=== PATIENT | female | born 1985 | race Caucasian/White ===

== ENCOUNTER 2020-02-24 14:47 | Emergency (ER) | payer SELFPAY ==
[2020-02-24] MEDS ORDERED: ONDANSETRON HCL INJ/PF 4 MG/2 ML SDV IV ONE ×2 (14:52→17:58)
[2020-02-24] MEDS ORDERED: RINGERS SOLUTION,LACTATED 1,000 ML IV ONE (14:52)
--- NOTE | 2020-02-24 14:55 | PSYCHOLOGICAL NOTE ---
Psych Note - Psych Note Date seen by psych provider: 02/24/20 Psych Note: At 1436 Amy from [facility] called. She noted patient overdosed in their parking lot, had 2 rounds of Narcan, and is being sent to [facility] for medical clearance. She stated they have a bed saved, to call them when patient is medically cleared, and they will come get patient. Clinical Presentation: Overdose Impression/Plan: Amy from [facility] noted they are holding a bed for patient. Once medically cleared [facility] needs to be contacted and they will come get patient.
--- NOTE | 2020-02-24 14:56 | ER Document Report ---
ED General - General Stated Complaint: POSSIBLE OVERDOSE Time Seen by Provider: 02/24/20 14:51 - HPI Notes: Patient is a 34-year-old female, brought into the emergency department for evaluation by EMS. History is entirely obtained from EMS, who also spoke to mother on scene. Evidently the patient was found unresponsive in a car at the parking lot at [facility]. There was a report that she overdosed on opiates and Xanax. The members of the staff there administered 8 mg of intranasal Narcan, called EMS. Patient was awake and alert, then became combative, incontinent. She was trying to leave. I can gain no further history in regards to present illness at this time. Evidently, the patient does have a history of IV drug abuse. She has a history of endocarditis with mitral valve replacement x2. - Related Data Allergies/Adverse Reactions: Unable to Assess Allergy (Verified 02/24/20 15:19) Past Medical History - General Information source: Emergency Med Personnel - Social History Smoking Status: Unknown if Ever Smoked Drug Abuse: Prescription drugs Family History: Other - Unobtainable at this time - Past Medical History Cardiac Medical History: Reports: Other - Infective endocarditis Past Surgical History: Reports: Hx Open Heart Surgery - Mitral valve replacement x2 Review of Systems - Review of Systems -: Yes ROS unobtainable due to patient's medical condition Physical Exam - Vital signs Vitals: Resp Pulse Ox 24 H 100 02/24/20 14:50 02/24/20 14:50 - Notes Notes: This is a disheveled 34-year-old female who appears her stated age. She is mildly distressed. She moves all 4 extremities spontaneously, no gross facial asymmetry. She actively fights off staff members. She states repeatedly, I just want to go" but then lays back down in the bed. She will not follow commands, but does open eyes intermittently spontaneously. Vital signs reviewed, please refer to chart. Head is normocephalic, atraumatic. Pupils equal round, reactive to light. Neck is supple without meningismus. Heart is regular rate and rhythm. Well-healing midline scar consistent with open heart surgery in the past. Lungs are clear to auscultation bilaterally. Abdomen is soft, nontender, normoactive bowel sounds throughout. Extremities without cyanosis, clubbing. Posterior calves are nontender. Peripheral pulses are equal. Skin is warm and dry. Course - Re-evaluation Re-evalutation: 02/24/20 14:56 Patient presents to the emergency department for evaluation after an apparent overdose. She did receive IM Narcan, is actively drooling, occasionally retching, yawning, all symptoms consistent with acute withdrawal. She is altered at this time, but her pupils are not pinpoint her respiratory rate is normal. I am not inclined to re-dose with Narcan at this time. Certainly I am not inclined to treat with flumazenil in this patient who likely has a long-term history of benzodiazepine abuse. She is currently stable, we will continue to monitor. 02/24/20 20:12 Patient will arouse with repeated stimuli, but is still not very cooperative with her care. It seems clear that polysubstance abuse has been a longstanding issue for her. She does actually have a bed waiting for her at [facility]. I still do not have a urine sample. Otherwise her work-up here is largely unremarkable. I do have concerns that this patient would be an acute danger to herself should she leave the department. Because of this, I did fill out 24-hour hold paperwork. I do believe it would be reasonable to rescind this when she becomes more arousable and amenable to treatment. The patient will be medically cleared once she is more arousable and taken to [facility] for further treatment. 02/24/20 21:34 Patient is more arousable at this time. She admits to using heroin and Xanax prior to arriving at the [facility] parking lot. She is still interested in receiving treatment. I did place a 24-hour hold, but because she is voluntarily interested in receiving treatment, I will revoke this. Still awaiting urine toxicology but her urinalysis was unremarkable. - Vital Signs Vital signs: Temp Pulse Resp BP Pulse Ox 98.2 F 30 H 110/74 100 02/24/20 15:08 02/24/20 19:01 02/24/20 19:00 02/24/20 19:01 - Laboratory Result Diagrams: 02/24/20 17:31 02/24/20 17:31 Laboratory results interpreted by me: 02/24/20 02/24/20 02/24/20 17:31 17:31 20:35 RDW 15.1 H Plt Count 122 L AST 43 H Urine Protein 30 H Urine Urobilinogen 4.0 H Salicylates < 1.0 L Acetaminophen < 10 L - Diagnostic Test Radiology reviewed: Reports reviewed Radiology results interpreted by me: 02/24/20 20:[address] 02/24/20 15:31 IMPRESSION: NORMAL BRAIN CT WITHOUT CONTRAST. EVIDENCE OF ACUTE STROKE: NO. - EKG Interpretation by Me Additional EKG results interpreted by me: 02/24/20 20:13 Sinus mechanism with rate of 98 bpm, artifact versus PAC noted. Normal axis and intervals. No acute ST changes concerning for ischemia or infarction. No old studies available for immediate comparison. Discharge - Discharge Clinical Impression: Polysubstance abuse Altered mental status Qualifiers: Altered mental status type: unspecified Qualified Code(s): R41.82 - Altered mental status, unspecified Overdose Qualifiers: Encounter type: initial encounter Injury intent: accidental or unintentional Qualified Code(s): T50.901A - Poisoning by unspecified drugs, medicaments and biological substances, accidental (unintentional), initial encounter Condition: Stable Disposition: OTHER Instructions: Benzodiazepines (OM), Narcotic Abuse (OM) Additional Instructions: Your findings today are consistent with an overdose. You will be taken to [facility] for treatment of your substance abuse issues. Follow-up with your primary care provider next week. Return to the ED with worsening or new concerning symptoms of any sort.
--- NOTE | 2020-02-24 15:59 | RADIOLOGY REPORT (SQ) ---
EXAM DESCRIPTION: CT HEAD WITHOUT IMAGES COMPLETED DATE/TIME: 02/24/2020 3:51 pm REASON FOR STUDY: Altered mental status COMPARISON: None. TECHNIQUE: Axial images acquired through the brain without intravenous contrast. Images reviewed wi th bone, brain and subdural windows. Additional sagittal and coronal reconstructions were generated. Images stored on PACS. All CT scanners at this facility use dose modulation, iterative reconstruction, and/or weight based d osing when appropriate to reduce radiation dose to as low as reasonably achievable (ALARA). [facility]: Dose Right [facility]: CareDose [facility]: Dose Right [facility]: Teradose 4D [facility]: Truli RADIATION DOSE: CT Rad equipment meets quality standard of care and radiation dose reduction techniq ues were employed. CTDIvol: 55.2 mGy. DLP: 1029 mGy-cm. mGy. LIMITATIONS: None. FINDINGS: VENTRICLES: Normal size and contour. CEREBRUM: No masses. No hemorrhage. No midline shift. No evidence for acute infarction. Normal gra y/white matter differentiation. No areas of low density in the white matter. CEREBELLUM: No masses. No hemorrhage. No alteration of density. No evidence for acute infarction. EXTRAAXIAL SPACES: No fluid collections. No masses. ORBITS AND GLOBE: No intra- or extraconal masses. Normal contour of globe without masses. CALVARIUM: No fracture. PARANASAL SINUSES: No fluid levels. SOFT TISSUES: No mass or hematoma. OTHER: No other significant finding. IMPRESSION: NORMAL BRAIN CT WITHOUT CONTRAST. EVIDENCE OF ACUTE STROKE: NO. COMMENT: Quality ID # [id number]: Final reports with documentation of one or more dose reduction techniques (e.g., Automated exposure control, adjustment of the mA and/or kV according to patient size, use of iterative reconstruction technique) TECHNICAL DOCUMENTATION: JOB ID: [id number] 2010 [employer]- All Rights Reserved Reading location - IP/workstation name: [email or web address]
[2020-02-24 17:46] LABS: ABSOLUTE BASOPHILS # (AUTO) 0.1 10^3/uL (0.0-0.2); ABSOLUTE EOSINOPHILS # (AUTO) 0.2 10^3/uL (0.0-0.6); ABSOLUTE LYMPHOCYTES (AUTO) 1.5 10^3/uL (0.5-4.7); ABSOLUTE MONOCYTES (AUTO) 0.5 10^3/uL (0.1-1.4); ABSOLUTE NEUT (AUTO) 5.8 10^3/uL (1.7-8.2); BASOPHILS % (AUTO) 0.9 % (0-2); EOSINOPHILS % (AUTO) 2.1 % (0-6); HEMATOCRIT 38.7 % (36.0-47.0); HEMOGLOBIN 13.6 g/dL (12.0-15.5); MEAN CORPUSCULAR HEMOGLOBIN 30.5 pg (27.0-33.4); MEAN CORPUSCULAR HGB CONC 35.2 g/dL (32.0-36.0); MEAN CORPUSCULAR VOLUME 87 fl (80-97); MONOCYTES % (AUTO) 5.7 % (3-13); PLATELET COUNT 122 10^3/uL (150-450); RED BLOOD COUNT 4.46 10^6/uL (3.72-5.28); RED CELL DISTRIBUTION WIDTH 15.1 % (11.5-14.0); SEGMENTED NEUTROPHILS % (AUTO) 72.3 % (42-78); TOTAL CELLS COUNTED % (AUTO) 100 %
[2020-02-24 18:02] LABS: INTERNATIONAL RATION (INR) 0.93; PROTHROMBIN TIME 12.7 SEC (11.4-15.4)
[2020-02-24 18:07] LABS: ALBUMIN 4.4 g/dL (3.5-5.0); ALKALINE PHOSPHATASE 68 U/L (38-126); ANION GAP 10 (5-19); ASPARTATE AMINO TRANSFERASE 43 U/L (14-36); BILIRUBIN,DIRECT 0.3 mg/dL (0.0-0.4); BILIRUBIN,TOTAL 0.6 mg/dL (0.2-1.3); BLOOD UREA NITROGEN 19 mg/dL (7-20); CALCIUM 9.5 mg/dL (8.4-10.2); CARBON DIOXIDE 27 mmol/L (22-30); CHLORIDE 102 mmol/L (98-107); GLUCOSE 109 mg/dL (75-110); POTASSIUM 4.2 mmol/L (3.6-5.0); TOTAL PROTEIN 8.1 g/dL (6.3-8.2)
[2020-02-24 18:08] LABS: ACETAMINOPHEN < 10 ug/mL (10-30); ALCOHOL < 10 mg/dL (NONE DETECTED); SALICYLATE < 1.0 mg/dL (2.0-20.0)
--- NOTE | 2020-02-24 18:12 | EKG REPORT ---
SEVERITY:- ABNORMAL ECG - SINUS RHYTHM ABNORMAL T, CONSIDER ISCHEMIA, LATERAL LEADS : Confirmed by: Fili Camejo MD 24-Feb-2020 18:11:03
[2020-02-24] MEDS ORDERED: NORMAL SALINE 1000 ML 1,000 ML IV ONE (18:19)
[2020-02-24 21:25] LABS: AMORPHOUS SEDIMENT,URINE TRACE /HPF; APPEARANCE,URINE CLOUDY; BILIRUBIN,URINE NEGATIVE (NEGATIVE); COLOR,URINE AMBER; GLUCOSE, URINE NEGATIVE (NEGATIVE); KETONES,URINE NEGATIVE (NEGATIVE); LEUKOCYTE ESTERASE,URINE NEGATIVE (NEGATIVE); NITRITE,URINE NEGATIVE (NEGATIVE); PROTEIN,URINE 30 mg/dL (NEGATIVE); URINE SPECIFIC GRAVITY 1.023
[2020-02-24 21:40] LABS: URINE BARBITURATES SCREEN NEGATIVE; URINE BENZODIAZEPINES SCREEN NEGATIVE; URINE COCAINE SCREEN NEGATIVE; URINE MARIJUANA (THC) SCREEN NEGATIVE; URINE METHADONE SCREEN NEGATIVE; URINE PHENCYCLIDINE SCREEN NEGATIVE
[2020-02-25 01:16] VITALS: BP 113/57
== END 2020-02-25 01:30 | disposition other institution (70) ==
LOC: ER 14:47
DX: T40.601A Poisoning by unspecified narcotics, accidental (unintentional), initial encounter (principal); T42.4X1A Poisoning by benzodiazepines, accidental (unintentional), initial encounter; R41.82 Altered mental status, unspecified; X58.XXXA Exposure to other specified factors, initial encounter; F19.10 Other psychoactive substance abuse, uncomplicated
CPT/HCPCS: 93005; 99285; 96361; 96374; 36415; 87040; 80307 ×4; 84703; 85025; 85610; 80053; 81001; 70450; 93010; J2405; J7030; J7120